=== PATIENT | male | born 1990 | race Hispanic/Latino ===

== ENCOUNTER → 2023-06-09 | Emergency (ER) | payer OTHER ==
[~2023-06-09] VITALS: Ht 167.6 cm; Wt 159.2 kg
[~2023-06-09] MED LIST: DIPH-1242 PO; PREDNISONE 20 MG TABLET PO ONE
[2023-06-09 02:18] VITALS: BP 145/83; PULSE 74; RESP 20
[2023-06-09] MEDS: PREDNISONE 20 MG TABLET PO ONE (03:25)
== END ==
LOC: EDH 02:15
DX: T78.49XA Other allergy, initial encounter (principal); X58.XXXA Exposure to other specified factors, initial encounter
CPT/HCPCS: 99282